=== PATIENT | female | born 2000 | race Hispanic/Latino ===

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

== ENCOUNTER 2019-03-17 21:14 | Emergency (ER) | payer SELFPAY ==
[2019-03-17 22:03] LABS: #Basophils 0.1 thou/uL (0.0-0.2); #Eosinphils 0.4 thou/uL (0.0-0.7); #Lymphocytes 3.8 thou/uL (1.20-3.40); #Monocytes 1.2 thou/uL (0.11-0.59); #Neutrophils 7.3 thou/uL (1.40-6.50); %Basophils 0.6 % (0.0-1.0); %Lymphocytes 29.9 % (28.0-48.0); %Monocytes 9.6 % (0.0-4.0); %Neutrophils 56.9 % (31.0-61.0); Hemoglobin 12.2 g/dL (12.0-16.0); Mean Corpuscular Hemoglobin 24.1 pg (25.0-35.0); Mean Corpuscular Volume 75.4 fL (78.0-98.0); Platelet Count 331 thou/uL (130-400); RBC Distribution Width 13.7 % (11.5-14.5); Red Blood Cell (RBC) Count 5.05 mill/uL (4.00-5.20); White Blood Cell (WBC) Count 12.9 thou/uL (4.8-10.8)
[2019-03-17 22:24] LABS: ALT (SGPT) 19 U/L (8-55); AST (SGOT) 19 U/L (5-30); Albumin 4.2 g/dL (3.5-5.0); Alkaline Phosphatase 125 U/L (40-150); Anion Gap 11 mmol/L (10-20); BUN (Urea Nitrogen) 14 mg/dL (8.4-21.0); Bilirubin, Total 0.2 mg/dL (0.2-1.2); Calc. Creatinine Clearance 0 mL/min (70-130); Calcium 9.4 mg/dL (7.8-10.44); Carbon Dioxide 23 mmol/L (22-29); Chloride 107 mmol/L (98-107); Estimated GFR-MDRD Greater than 90; Globulin 3.1 g/dL (2.4-3.5); Glucose 84 mg/dL (70-105); Potassium 3.9 mmol/L (3.5-5.1); Protein, Total 7.3 g/dL (6.0-8.3); Sodium 137 mmol/L (136-145)
--- NOTE | 2019-03-17 22:27 | RAD ---
EXAM: Two views chest PROVIDED CLINICAL HISTORY: Chest pain and productive cough COMPARISON: None FINDINGS: Cardiac and mediastinal silhouette appears within normal limits. Lungs appear free of significant opa city. No pleural fluid or pneumothorax apparent. IMPRESSION: No evidence for an acute cardiopulmonary process.
[2019-03-17] MEDS ORDERED: Acetaminophen 500 MG TAB ONE (22:45)
== END 2019-03-17 22:58 | disposition home or self-care (01) ==
LOC: ERS 21:14
DX: J45.901 Unspecified asthma with (acute) exacerbation (principal); R04.2 Hemoptysis; F41.9 Anxiety disorder, unspecified; F32.9 Major depressive disorder, single episode, unspecified; F17.210 Nicotine dependence, cigarettes, uncomplicated
CPT/HCPCS: 36415; 71046; 80053; 85025; 94640; J7620

== ENCOUNTER 2019-03-24 13:08 | Emergency (ER) | payer SELFPAY | END 2019-03-24 14:56 | disposition home or self-care (01) | LOC: ERS 13:08 | DX: R05 Cough (principal); F41.9 Anxiety disorder, unspecified; F32.9 Major depressive disorder, single episode, unspecified; J45.909 Unspecified asthma, uncomplicated; Z87.891 Personal history of nicotine dependence; Z79.51 Long term (current) use of inhaled steroids | CPT/HCPCS: 99283 ==

== ENCOUNTER 2019-06-13 22:20 | Emergency (ER) | payer OTHER, SELFPAY ==
[2019-06-13] MEDS ORDERED: Fluorescein Opthalmic Strip ONE (22:37)
[2019-06-13] MEDS ORDERED: Proparacaine 0.5% Opth 15 ML BOT ONE (22:37)
== END 2019-06-13 22:54 | disposition home or self-care (01) ==
LOC: ERS 22:20
DX: S00.11XA Contusion of right eyelid and periocular area, initial encounter (principal); J45.909 Unspecified asthma, uncomplicated; F41.9 Anxiety disorder, unspecified; F32.9 Major depressive disorder, single episode, unspecified; Z87.891 Personal history of nicotine dependence; Z79.51 Long term (current) use of inhaled steroids; W22.8XXA Striking against or struck by other objects, initial encounter
CPT/HCPCS: 99283

== ENCOUNTER 2020-07-13 13:48 | Outpatient (CLI) | payer MEDICAID ==
--- NOTE | 2020-07-13 14:39 | ULT ---
BILATERAL BREAST ULTRASOUND: HISTORY: Right breast mass. FINDINGS: Sonographic evaluation of the development representative quadrants and left axilla demonstrate no abnormality. Sonographic evaluation of the retroareolar region of the right breast demonstrates a complex mass antonio suring 11 x 14 x 9 mm. This is suspicious for an abscess given the history of pain and positive disc harge from the nipple after piercing of the nipple and removal of the nipple piercing. IMPRESSION: Findings are suspicious for right retroareolar abscess formation. POS: OFF
--- NOTE | 2020-07-13 14:44 | ULT ---
BILATERAL BREAST ULTRASOUND: HISTORY: Right breast mass. FINDINGS: Sonographic evaluation of the wholesale representative quadrants and left axilla demonstrate no abnormality. Sonographic evaluation of the retroareolar region of the right breast demonstrates a complex mass antonio suring 11 x 14 x 9 mm. This is suspicious for an abscess given the history of pain and positive disc harge from the nipple after piercing of the nipple and removal of the nipple piercing. IMPRESSION: Findings are suspicious for right retroareolar abscess formation. POS: OFF
== END 2020-07-13 13:49 | disposition home or self-care (01) ==
LOC: BICULT 13:48
PROVIDERS: ATTEND Nurse Practitioner Family
DX: N63.10 Unspecified lump in the right breast, unspecified quadrant (principal)

== ENCOUNTER 2021-09-17 07:21 | Emergency (ER) | payer MEDICAID ==
[2021-09-17 08:02] LABS: #Basophils 0.2 thou/uL (0.0-0.2); #Eosinphils 0.9 thou/uL (0.0-0.7); #Lymphocytes 4.2 thou/uL (1.20-3.40); #Monocytes 1.2 thou/uL (0.11-0.59); %Basophils 1.2 % (0.0-1.0); %Eosinophils 7.6 % (0.0-10.0); %Lymphocytes 33.7 % (21.0-51.0); %Monocytes 9.2 % (0.0-10.0); %Neutrophils 48.3 % (42.0-75.0); Hemoglobin 13.2 g/dL (12.0-16.0); Mean Corpuscular HGB CONC 31.5 g/dL (32.0-36.0); Mean Corpuscular Hemoglobin 23.1 pg (27.0-31.0); Mean Corpuscular Volume 73.4 fL (78.0-98.0); Mean Platelet Volume 8.2 fL (7.4-10.4); Platelet Count 321 thou/uL (130-400); Red Blood Cell (RBC) Count 5.71 mill/uL (4.20-5.40); White Blood Cell (WBC) Count 12.5 thou/uL (4.8-10.8)
[2021-09-17 08:18] LABS: ALT (SGPT) 25 U/L (8-55); AST (SGOT) 20 U/L (5-34); Alkaline Phosphatase 116 U/L (40-110); Anion Gap 13 mmol/L (10-20); BUN (Urea Nitrogen) 9 mg/dL (7.0-18.7); Bilirubin, Total 0.2 mg/dL (0.2-1.2); Calc. Creatinine Clearance 0 mL/min (70-130); Calcium 9.9 mg/dL (7.8-10.44); Carbon Dioxide 21 mmol/L (22-29); Chloride 106 mmol/L (98-107); Globulin 3.8 g/dL (2.4-3.5); Glucose 102 mg/dL (70-105); Lipase 33 U/L (8-78); Potassium 3.8 mmol/L (3.5-5.1); Protein, Total 7.8 g/dL (6.0-8.3); Sodium 136 mmol/L (136-145)
[2021-09-17 08:30] LABS: MDiff Complete? YES; Microcytosis SLIGHT = 6-15 cells (100X) (0-5/hpf); Platelet Morphology Comment Appears Adequate; Polychromasia SLIGHT = 2-3 cells (100X) (0-2/hpf)
[2021-09-17] MEDS ORDERED: Acetaminophen 500 MG TAB ONE (09:19)
[2021-09-17 11:25] LABS: Bacteria/HPF 4+ HPF (None Seen); Bilirubin Negative (Negative); Blood, Urine Negative (Negative); Clarity Cloudy (Clear); Glucose, Urine (Dipstick) Normal (Negative); Ketone, Urine Negative (Negative); Leukocyte 500 Leu/uL (Negative); Nitrite Negative (Negative); Pregnancy Test - Urine (BHCG) Negative (Negative); Pregu Control Background? CLEAR/WHITE (CLR/WHITE); Pregu Control Bar Appear? YES (CONTROL BAR); Protein, Urine (Dipstick) Negative (Neg-Trace); RBC/HPF 0-3 HPF (0-3); Specific Gravity 1.008 (1.002-1.036); Specific Gravity, Urine 1.008 (1.002-1.036); Squamous Epithelial 21-50 HPF (0-3); Urobilinogen Normal mg/dL (Less than 2); WBC/HPF 21-50 HPF (0-3)
== END 2021-09-17 11:53 | disposition home or self-care (01) ==
LOC: ERS 07:21
DX: K80.20 Calculus of gallbladder without cholecystitis without obstruction (principal); J45.909 Unspecified asthma, uncomplicated
CPT/HCPCS: 36415; 76705; 80053; 81003; 81015; 81025; 83690; 85025; 87086

== ENCOUNTER 2022-06-21 07:22 | Emergency (ER) | payer MEDICAID, SELFPAY | END 2022-06-21 08:18 | disposition home or self-care (01) | LOC: ERS 07:22 | DX: M54.12 Radiculopathy, cervical region (principal) | CPT/HCPCS: 99283 ==

== ENCOUNTER 2024-06-21 20:31 | Emergency (ER) | payer SELFPAY ==
[2024-06-21] MEDS ORDERED: Morphine 4 MG/ML VIAL ONE (20:54)
[2024-06-21] MEDS ORDERED: Ondansetron PF 4 MG/2 ML Vial ONE (20:54)
[2024-06-21 21:05] LABS: #Basophils 0.08 10x3/uL (0.0-0.2); %Basophils 0.6 % (0.0-1.0); %Eosinophils 3.9 % (0.0-10.0); %Lymphocytes 31.7 % (21.0-51.0); %Monocytes 8.8 % (0.0-10.0); %Neutrophils 54.7 % (42.0-75.0); Hematocrit 38.8 % (36.0-47.0); Hemoglobin 11.8 g/dL (12.0-16.0); Mean Corpuscular HGB CONC 30.4 g/dL (32.0-36.0); Mean Corpuscular Hemoglobin 22.3 pg (27.0-31.0); Mean Corpuscular Volume 73.3 fL (78.0-98.0); Platelet Count 383 10x3/uL (130-400); RBC Distribution Width 16.1 % (11.5-14.5); Red Blood Cell (RBC) Count 5.29 mill/uL (4.20-5.40)
[2024-06-21 21:13] LABS: BHCG - Serum Negative (NEGATIVE); Pregs Control Background? CLEAR/WHITE (CLR/WHITE); Pregs Control Bar Appear? YES (CONTROL BAR)
[2024-06-21 21:23] LABS: ALT (SGPT) 38 U/L (8-55); AST (SGOT) 61 U/L (5-34); Albumin 3.5 g/dL (3.5-5.0); Alkaline Phosphatase 103 U/L (40-110); Anion Gap 13 mmol/L (10-20); BUN (Urea Nitrogen) 10 mg/dL (7.0-18.7); Bilirubin, Total 0.3 mg/dL (0.2-1.2); Calc. Creatinine Clearance 0 mL/min (70-130); Calcium 8.8 mg/dL (7.8-10.44); Carbon Dioxide 21 mmol/L (22-29); Chloride 109 mmol/L (98-107); Estimated GFR 126; Globulin 3.2 g/dL (2.4-3.5); Glucose 98 mg/dL (70-105); Lipase 27 U/L (8-78); Potassium 3.5 mmol/L (3.5-5.1); Protein, Total 6.7 g/dL (6.0-8.3); Sodium 139 mmol/L (136-145)
[2024-06-21 21:26] LABS: Microcytosis SLIGHT = 6-15 cells HPF (0-5); Platelet Adequacy Comment Platelets Normal; Polychromasia SLIGHT = 2-3 cells HPF (0-2); Schistocytes SLIGHT = 2-5 cells HPF (0-1)
[2024-06-21] MEDS ORDERED: Sodium Chloride 0.9% 100 ML ONE (22:28)
[2024-06-21] MEDS ORDERED: Piperacillin/Tazobactam 3.375 GM VIAL ONE (22:28)
== END 2024-06-22 00:14 | disposition home or self-care (01) ==
LOC: ERS 20:31
DX: K80.10 Calculus of gallbladder with chronic cholecystitis without obstruction (principal); F17.290 Nicotine dependence, other tobacco product, uncomplicated
CPT/HCPCS: 36415; 76705; 80053; 83605; 83690; 84703; 85025; 87040; 96374; 96375; J2272; J2405; J2543